=== PATIENT | male | born 1960 | race Caucasian/White ===

== ENCOUNTER 2017-10-28 14:59 | Emergency (ER) | payer OTHER ==
[~2017-10-28] VITALS: Ht 177.8 cm; Wt 86.2 kg
[2017-10-28 15:02] VITALS: Ht 177.8 cm; Wt 86.2 kg
[2017-10-28] MEDS ORDERED: ASPIRIN 81 MG TAB PO STA (16:22)
--- NOTE | 2017-10-28 16:31 | ERD ---
ER Documentation Chief Complaint Chief Complaint Pt presents with CP x 2 days and B leg pain, Pt had CAGB-4V 10/14/17 HPI Patient is a 57-year-old male who presents with sudden onset intermittent supraclavicular pain when he tries to sit up for the last 2 weeks. This began after he had surgery at [facility] for a four-vessel CABG. He also had vein harvest from right leg and coronary cath access in the left groin. He complains of pain in the left groin is worse with walking. He denies fever. He does report constant mild shortness of breath that is worse with ambulation. He has not yet had follow-up with his cardiothoracic surgeon. ROS All systems reviewed and are negative except as per history of present illness. Allergies Allergies: Coded Allergies: No Known Allergy (Unverified , 10/28/17) PMhx/Soc Past medical history: Coronary artery disease, diabetes mellitus, hypertension Past surgical history: CABG, 2 hernia repairs Social history: Remote history of cocaine and cannabis use, no current drug, alcohol or tobacco use. History of Surgery: Yes (CABGx4, right shoulder, bilateral inguinal hernia) Anesthesia Reaction: No Hx Neurological Disorder: No Hx Respiratory Disorders: No Hx Cardiac Disorders: Yes ([place]) Hx Psychiatric Problems: No Hx Miscellaneous Medical Probl: No Hx Alcohol Use: No Hx Substance Use: No Hx Tobacco Use: No Smoking Status: Never smoker FmHx Noncontributory Physical Exam Vitals Vital Signs Date Time Temp Pulse Resp B/P Pulse Ox O2 Delivery O2 Flow Rate FiO2 10/28/17 17:31 98.6 100 17 114/82 97 Room Air 10/28/17 16:07 98.6 105 17 123/78 97 Room Air 10/28/17 15:02 98.4 107 18 144/69 96 Physical Exam Const: Alert, no acute distress Head: Atraumatic Eyes: Normal Conjunctiva, No pallor, no icterus ENT: Normal External Ears, Nose and Mouth. Mucous membranes moist Neck: Full range of motion. No JVD Resp: Clear to auscultation bilaterally, No wheezes, no rales Cardio: Regular rate and rhythm, no murmurs, No gallop, no rub. Midline sternotomy incision clean, dry and intact. Abd: Soft, non tender, non distended. Skin: No petechiae or rashes Ext: No cyanosis, or edema, 2+ pulses in 4 extremities. Tenderness in the left medial thigh, no pulsatile mass. Neur: Awake and alert, Cranial nerves II through XII intact bilaterally, strength and sensation full for extremity's. Psych: Normal Mood and Affect Result Diagram: 10/28/17 1700 10/28/17 1700 Results 24 hrs Laboratory Tests Test 10/28/17 17:00 10/28/17 18:05 White Blood Count 10.110^3/ul Red Blood Count 3.1510^6/ul Hemoglobin 9.8g/dl Hematocrit 29.8% Mean Corpuscular Volume 94.6fl Mean Corpuscular Hemoglobin 31.1pg Mean Corpuscular Hemoglobin Concent 32.9g/dl Red Cell Distribution Width 13.0% Platelet Count 70646^3/UL Mean Platelet Volume 9.2fl Neutrophils % 66.5% Lymphocytes % 22.7% Monocytes % 7.2% Eosinophils % 2.5% Basophils % 0.4% Nucleated Red Blood Cells % 0.0/100WBC Neutrophils # 6.710^3/ul Lymphocytes # 2.310^3/ul Monocytes # 0.710^3/ul Eosinophils # 0.310^3/ul Basophils # 0.010^3/ul Nucleated Red Blood Cells # 0.010^3/ul Sodium Level 141mmol/L Potassium Level 4.2mmol/L Chloride Level 104mmol/L Carbon Dioxide Level 28mmol/L Anion Gap 13 Blood Urea Nitrogen 12mg/dl Creatinine 0.82mg/dl Glucose Level 92mg/dl Calcium Level 9.3mg/dl Troponin I 0.078ng/ml B-Type Natriuretic Peptide 1220PG/ML Prothrombin Time 14.2Sec Prothrombin Time Ratio 1.1 INR International Normalized Ratio 1.09 Current Medications Medications (Trade) Dose Ordered Sig/Nelly Route PRN Reason Start Time Stop Time Status Last Admin Dose Admin Aspirin (Aspirin) 162 mg ONCE STAT PO 10/28/17 16:22 10/28/17 16:25 DC 10/28/17 17:33 Procedures/MDM EKG read by me: Time 1507, rate 113 Rhythm: Sinus tachycardia [place]: Normal Intervals: Normal ST-T waves: Lateral T-wave inversion, inferior T-wave inversion, no ST elevation or depression Ectopy: No Q-waves: Inferior Q waves are not clearly pathologic Impression: Sinus tachycardia with T-wave inversions. MDM: Patient is a 57-year-old male who had a four-vessel CABG approximately 2 weeks ago and presents to the ER with complaint of dyspnea that is exacerbated by exertion, pain in his upper sternum, and pain in his left groin. With regards to the pain in his chest, he states that it is with movement such as leaning forward or sitting up. He denies that he has chest pain with exertion. It is focal in the region of the sternotomy, and is likely chest wall pain. However, the patient does report dyspnea at rest that is worse with exertion. He has an elevated BNP, and slightly elevated troponin. I advised that he be admitted to the hospital for echocardiogram to exclude underlying CHF or pericardial effusion, or complication of recent CABG. I also evaluated the patient's groin pain. There is no clinical sign of a post-cath aneurysm, and ultrasound is negative for DVT. I advised the patient that he may require an arterial ultrasound to evaluate further. He had equal pulses in 4 extremities. There is no sign of infection. The patient refused admission to the hospital and signed out AGAINST MEDICAL ADVICE. I discussed with him risks including surgery related complications, heart attack, heart failure, arrhythmia, aneurysm , infection or . The patient was able to express understanding of these risks and signed out AGAINST MEDICAL ADVICE. I did speak to the patient's cardiothoracic surgeon, Dr. Quinn at [facility]. He could not provide a specified follow-up appointments, but advised that the patient call his office on Tuesday to arrange a follow-up appointment. The patient was advised of the need to do so. Departure Diagnosis: Primary Impression: Chest pain Chest pain type: unspecified Qualified Code: R07.9 - Chest pain, unspecified type Additional Impressions: Groin pain Laterality: left Qualified Code: R10.32 - Left inguinal pain Dyspnea Dyspnea type: unspecified Qualified Code: R06.00 - Dyspnea, unspecified type Condition: Stable (AGAINST MEDICAL ADVICE) NIK SULLIVAN MD Oct 28, 2017 16:31
--- NOTE | 2017-10-28 16:44 | RADRPT ---
PROCEDURE: Chest x-ray CLINICAL INDICATION: Chest pain TECHNIQUE: Chest single view COMPARISON: None FINDINGS: There post sternotomy changes. Moderate cardiomegaly and mild atherosclerotic aortic calcification s een. The pulmonary vessels are normal in caliber. The lungs are clear. The costophrenic angles ar e sharp. The visualized bony thorax is unremarkable. IMPRESSION: Cardiomegaly and mild atherosclerotic aortic calcification Status post sternotomy RPTAT: HH .Jarrett Ballard MD, MD Date Time Electronically viewed and signed by .Jarrett Ballard MD, on 10/28/2017 16:44 .W/
--- NOTE | 2017-10-28 17:24 | RADRPT ---
PROCEDURE: US venous left lower extremity CLINICAL INDICATION: Left lower extremity swelling. TECHNIQUE: Multiple longitudinal and transverse images of the left lower extremity veins were obtai rosario with orourke scale and color Doppler imaging. The calf veins were interrogated as well. COMPARISON: None available. FINDINGS: Common femoral vein: Normal flow. Compressible and augmentable. Proximal superficial femoral vein: Normal flow. Compressible and augmentable. Mid superficial femoral vein: Normal flow. Compressible and augmentable. Distal superficial femoral vein: Normal flow. Compressible and augmentable. Popliteal vein: Normal flow. Compressible and augmentable. Calf veins: Normal flow. IMPRESSION: 1. No evidence of a deep vein thrombosis within the left lower extremity. RPTAT: HLBP .Shant Knowles MD, MD Date Time Electronically viewed and signed by .Shant Knowles MD, MD on 10/28/2017 17:23 .P/
[2017-10-28 17:25] LABS: BASOPHILS % 0.4 % (0.0-2.0); EOSINOPHILS # 0.3 10^3/ul (0.0-0.5); EOSINOPHILS % 2.5 % (0.0-7.0); HEMATOCRIT 29.8 % (42.0-52.0); HEMOGLOBIN 9.8 g/dl (14.0-18.0); LYMPHOCYTES # 2.3 10^3/ul (0.8-2.9); LYMPHOCYTES % 22.7 % (15.0-51.0); MEAN CORPUSCULAR HEMOGLOBIN 31.1 pg (29.0-33.0); MEAN CORPUSCULAR HGB CONC 32.9 g/dl (32.0-37.0); MEAN CORPUSCULAR VOLUME 94.6 fl (82.0-101.0); MEAN PLATELET VOLUME 9.2 fl (7.4-10.4); MONOCYTE # 0.7 10^3/ul (0.3-0.9); MONOCYTES % 7.2 % (0.0-11.0); NEUTROPHIL # 6.7 10^3/ul (1.6-7.5); NEUTROPHILS % 66.5 % (39.0-77.0); PLATELET COUNT 543 10^3/UL (140-415); RED BLOOD COUNT 3.15 10^6/ul (4.70-6.10); WHITE BLOOD COUNT 10.1 10^3/ul (4.8-10.8)
[2017-10-28 17:31] VITALS: BP 114/82; PULSE 100; RESP 17; TEMP 98.6
[2017-10-28 17:43] LABS: CALCIUM 9.3 mg/dl (8.4-10.2); CREATININE 0.82 mg/dl (0.61-1.24); POTASSIUM 4.2 mmol/L (3.5-5.1)
[2017-10-28 17:56] LABS: TROPONIN-I 0.078 ng/ml (0.00-0.12)
[2017-10-28 18:37] LABS: INR 1.09; PROTIME 14.2 Sec (11.9-14.9); PT RATIO 1.1
== END 2017-10-28 18:46 | disposition left against medical advice (07) ==
LOC: E/R 14:59
DX: R07.9 Chest pain, unspecified (principal); R10.32 Left lower quadrant pain; R06.00 Dyspnea, unspecified; I10 Essential (primary) hypertension; I25.10 Atherosclerotic heart disease of native coronary artery without angina pectoris; E11.9 Type 2 diabetes mellitus without complications; Z95.1 Presence of aortocoronary bypass graft
CPT/HCPCS: 36415; 71010; 80048; 83880; 84484; 85025; 85610; 93971; Z7502; Z7610; 93005

== ENCOUNTER 2017-10-29 21:59 | Inpatient (IN) | payer OTHER ==
[~2017-10-29] VITALS: Ht 180.3 cm; Wt 87.7 kg
--- NOTE | 2017-10-29 22:21 | ERD ---
ER Documentation Chief Complaint Chief Complaint left arm numbness/sob x 1 hour. also c/o chest pain HPI 57-year-old man status post CABG about 10 days ago presents with shortness of breath, he was seen and evaluated yesterday for similar symptoms. He lives in his car and does not ambulate much, he denies fevers or chills, no history of COPD or smoking, no complaints of chest pain. He has had no vomiting or diarrhea, no complaints of abdominal pain. Patient denies calf or leg swelling. Patient was seen and evaluated here yesterday and workup was unremarkable, bilateral lower extremity ultrasound was negative for DVT. ROS All systems reviewed and are negative except as per history of present illness. Allergies Allergies: Coded Allergies: No Known Allergy (Unverified , 10/30/17) PMhx/Soc CAD status post CABG with right lower extremity vein harvest, hypertension, hernia History of Surgery: Yes (CABGx4, right shoulder, bilateral inguinal hernia) Anesthesia Reaction: No Hx Neurological Disorder: No Hx Respiratory Disorders: No Hx Cardiac Disorders: Yes ([place]) Hx Psychiatric Problems: No Hx Miscellaneous Medical Probl: No Hx Alcohol Use: No Hx Substance Use: No Hx Tobacco Use: No FmHx Family History: No diabetes Physical Exam Vitals Vital Signs Date Time Temp Pulse Resp B/P Pulse Ox O2 Delivery O2 Flow Rate FiO2 10/30/17 02:27 98 20 117/78 98 Room Air 10/29/17 22:02 98.2 110 20 114/75 99 Physical Exam GENERAL: Well-developed, well-nourished, well-hydrated, in no apparent distress , looks nontoxic in appearance HEENT: Moist mucous membranes, pink conjunctiva, no cervical spine tenderness or step-off deformities, no goiter, no jaundice or icterus, extraocular movements intact without pain. No submandibular induration, and no pharyngeal erythema NEURO: Alert and oriented 3, cranial nerves II through XII intact bilaterally, pupils equal round reactive to light, no focal deficits or facial asymmetry, sensation intact distally Strength 5/5 in upper and lower extremities bilaterally CARDIAC: Tachycardic and regular, no murmurs rubs or gallops LUNGS: Clear bilaterally no wheezing crackles or stridor ABDOMEN: Soft nontender, no guarding, no rigidity, no rebound, no psoas sign no obturator sign. Normoactive bowel sounds SKIN: Warm and dry to touch, no abrasions, contusions, or hematomas, no lacerations, no ecchymosis, no target lesions, and without ulcers EXTREMITIES: No clubbing cyanosis or edema, calves are bilaterally symmetrical, no Homans sign, no popliteal cord sign. Distal pulses equal and bilateral PSYCH: Normal affect without agitation or irritability Result Diagram: 10/29/17223010/29/172230 Results 24 hrs Laboratory Tests Test 10/29/17 22:17 10/29/17 22:31 Blood Gas Specimen Source Blood arterial Arterial Blood Date Drawn 10/29/2017 10:30:33 PM Arterial Blood pH (Temp corrected) 7.430 Arterial Blood pCO2 (Temp correct) 38.4mmhg Arterial Blood pO2 (Temp corrected) 74.4mmHG Arterial Blood HCO3 24.9mmol/L Arterial Blood Base Excess 0.7mmol/L Arterial Blood Oxygen Saturation 94.5mmHG Richard Test ACCEPTAB Arterial Blood Gas Puncture Site Right Radial Arterial Blood Carboxyhemoglobin 0.3% Arterial Blood Methemoglobin 0.1% Blood Gas A-a O2 Differential 29.3mmHg Oxyhemoglobin Percent 94.1% Total Hemoglobin 11.2g/dl Blood Gas Temperature 37.0C Blood Gas Actual Respiration Rate 18 Blood Gas Modality ROOM AIR FiO2 21.0% Blood Gas Notified Whom Blood Gas Notified Time 10/29/2017 10:37:19 PM White Blood Count 12.310^3/ul Red Blood Count 3.4310^6/ul Hemoglobin 10.5g/dl Hematocrit 32.2% Mean Corpuscular Volume 93.9fl Mean Corpuscular Hemoglobin 30.6pg Mean Corpuscular Hemoglobin Concent 32.6g/dl Red Cell Distribution Width 13.0% Platelet Count 27907^3/UL Mean Platelet Volume 9.1fl Neutrophils % 69.4% Lymphocytes % 18.6% Monocytes % 7.7% Eosinophils % 2.9% Basophils % 0.6% Nucleated Red Blood Cells % 0.0/100WBC Neutrophils # 8.510^3/ul Lymphocytes # 2.310^3/ul Monocytes # 1.010^3/ul Eosinophils # 0.410^3/ul Basophils # 0.110^3/ul Nucleated Red Blood Cells # 0.010^3/ul Prothrombin Time 14.6Sec Prothrombin Time Ratio 1.1 INR International Normalized Ratio 1.12 Sodium Level 141mmol/L Potassium Level 3.6mmol/L Chloride Level 102mmol/L Carbon Dioxide Level 28mmol/L Anion Gap 15 Blood Urea Nitrogen 15mg/dl Creatinine 0.85mg/dl Glucose Level 109mg/dl Calcium Level 9.1mg/dl Total Bilirubin 0.3mg/dl Direct Bilirubin 0.00mg/dl Indirect Bilirubin 0.3mg/dl Aspartate Amino Transf (AST/SGOT) 25IU/L Alanine Aminotransferase (ALT/SGPT) 38IU/L Alkaline Phosphatase 105IU/L Troponin I 0.062ng/ml B-Type Natriuretic Peptide 1170PG/ML Total Protein 7.1g/dl Albumin 3.9g/dl Globulin 3.20g/dl Albumin/Globulin Ratio 1.21 Lipase 51U/L Current Medications Medications (Trade) Dose Ordered Sig/Nelly Route PRN Reason Start Time Stop Time Status Last Admin Dose Admin IV Flush 10 ml 10 ml STK-MED ONCE .ROUTE 10/30/17 00:44 10/30/17 00:45 DC 10/30/17 00:51 Sodium Chloride 100 ml @ ud STK-MED ONCE .ROUTE 10/30/17 00:44 10/30/17 00:45 DC 10/30/17 00:51 Iohexol (Omnipaque) 100 ml @ ud STK-MED ONCE .ROUTE 10/30/17 00:44 10/30/17 00:45 DC 10/30/17 00:51 Morphine Sulfate (morphine) 2 mg ONCE STAT IV 10/30/17 02:23 10/30/17 02:42 DC 10/30/17 03:17 Procedures/[facility] IV line was established patient was placed on pvc monitor rhythm strip revealed a sinus tachycardia at 110 bpm with upright P and T waves. Patient was afebrile EKG performed, read by me revealed a sinus tachycardia at 105 bpm normal axis, narrow QRS complex, no concerning ST elevations or depressions noted. CBC and electrolytes were unremarkable, liver function tests were normal, troponin was negative, ABG was normal. BNP was elevated for the second day in a row. One view chest x-ray performed, read by me revealed sternotomy wires, no acute infiltrates, no pneumothorax. Given the patient's continued tachycardia CT angiogram of the chest was ordered IMPRESSION: No evidence of pulmonary embolism or aortic dissection. Status post mediastinotomy and CABG with a qzbbzwgm-[id number] retrosternal fluid collection measuring 3.9 x 7.5 x 16.1 cm. Findings could represent a postoperative seroma, hematoma or abscess. Small to moderate pericardial effusion. Bilateral small pleural effusions with underlying atelectasis, greater on the left. Cholelithiasis. Coronary artery disease. Departure Diagnosis: Primary Impression: Shortness of breath Additional Impressions: Pericardial effusion Pleural effusion Condition: Fair DEVANTE ANTONIO MD Oct 29, 2017 22:21
[2017-10-29 22:37] LABS: AADO2 Arterial 29.3 mmHg (7.0-24.0); Allen Test ACCEPTAB; Arterial Base Excess 0.7 mmol/L (-3.0-3); Arterial COHb 0.3 % (0.0-3.0); Arterial Fraction of Oxyhgb 94.1 % (93.0-99.0); Arterial HCO3 24.9 mmol/L (22.0-26.0); Arterial MetHb 0.1 % (0.0-1.5); Arterial Total Hemglobin 11.2 g/dl (12.0-18.0); MODE ROOM AIR
[2017-10-29 23:02] LABS: BASOPHIL # 0.1 10^3/ul (0.0-0.1); BASOPHILS % 0.6 % (0.0-2.0); EOSINOPHILS # 0.4 10^3/ul (0.0-0.5); EOSINOPHILS % 2.9 % (0.0-7.0); HEMATOCRIT 32.2 % (42.0-52.0); HEMOGLOBIN 10.5 g/dl (14.0-18.0); LYMPHOCYTES # 2.3 10^3/ul (0.8-2.9); LYMPHOCYTES % 18.6 % (15.0-51.0); MEAN CORPUSCULAR HEMOGLOBIN 30.6 pg (29.0-33.0); MEAN CORPUSCULAR HGB CONC 32.6 g/dl (32.0-37.0); MEAN CORPUSCULAR VOLUME 93.9 fl (82.0-101.0); MEAN PLATELET VOLUME 9.1 fl (7.4-10.4); MONOCYTES % 7.7 % (0.0-11.0); NEUTROPHIL # 8.5 10^3/ul (1.6-7.5); NEUTROPHILS % 69.4 % (39.0-77.0); PLATELET COUNT 553 10^3/UL (140-415); RED BLOOD COUNT 3.43 10^6/ul (4.70-6.10); WHITE BLOOD COUNT 12.3 10^3/ul (4.8-10.8)
[2017-10-29 23:21] LABS: ALBUMIN 3.9 g/dl (3.3-4.9); ALBUMIN/GLOBULIN RATIO 1.21; BILIRUBIN,INDIRECT 0.3 mg/dl (0-1.1); BILIRUBIN,TOTAL 0.3 mg/dl (0.2-1.3); CALCIUM 9.1 mg/dl (8.4-10.2); CREATININE 0.85 mg/dl (0.61-1.24); POTASSIUM 3.6 mmol/L (3.5-5.1); TOTAL PROTEIN 7.1 g/dl (6.1-8.1)
[2017-10-29 23:28] LABS: INR 1.12; PROTIME 14.6 Sec (11.9-14.9); PT RATIO 1.1
[2017-10-29 23:32] LABS: TROPONIN-I 0.062 ng/ml (0.00-0.12)
[2017-10-30] VITALS (12 sets, daily range): BP systolic 106–139; BP diastolic 62–90; PULSE 90–105; RESP 16–20; TEMP 98.6; Ht 180.3 cm; Wt 87.7 kg
[2017-10-30] MEDS ORDERED: SOD CHLORIDE 0.9% 100 ML ONE (00:44)
[2017-10-30] MEDS ORDERED: IOHEXOL 100 ML ONE (00:44)
--- NOTE | 2017-10-30 01:33 | RADRPT ---
PROCEDURE: CHEST - 1 VIEW CLINICAL INDICATION: 57-year-old male with chest/abdominal pain. TECHNIQUE: A single frontal AP semi-erect view of the chest was performed. The images were review ed on a PACS workstation. COMPARISON: None. FINDINGS: The patient has had a prior median sternotomy. The cardiomediastinal silhouette is within normal finney its. The thoracic aortic arch is mildly calcified. There is a shallow inspiration. There is minimal bibasilar subsegmental atelectasis. There is no evidence for an infiltrate. There is no evidence fo r congestive heart failure. There is no evidence for pneumothorax. There are small metallic densitie s within the inferior right glenoid from prior shoulder surgery. There are old fracture deformities involving the posterior left fourth, fifth, sixth and seventh ribs. Bilateral carotid bifurcation re gion calcifications are noted. IMPRESSION: 1. Status post median sternotomy. 2. Calcified thoracic aortic arch. 3. Shallow inspiration with minimal bibasilar subsegmental atelectasis. 4. Prior right shoulder surgery. 5. Old posterior left rib fracture deformities. 6. Carotid bifurcation calcifications. .Radu Mckinney MD, Date Time Electronically viewed and signed by .Radu Mckinney MD, on 10/30/2017 01:32 .M/
[2017-10-30] MEDS ORDERED: morphine 2 MG INJ IV STA (02:23)
--- NOTE | 2017-10-30 03:09 | RADRPT ---
PROCEDURE: CT angiogram of the chest with contrast. CLINICAL INDICATION: Shortness of breath. TECHNIQUE: CT angiogram of the chest was obtained using a multi-detector high-resolution CT. Con tiguous axial images were obtained during the dynamic injection of 80 cc of Omnipaque 350 intravenou s contrast. Coronal and sagittal reformatted images were obtained. 3-D reformatted images were als o obtained. Images were reviewed on a PACS workstation. DICOM images are available. One or more of the following dose reduction techniques were used: - Automated exposure control. - Adjustment of the mA and/or kV according to patient size. - Use of iterative reconstruction technique. Exam CTD/vol = 17.90 mGy. Total exam DLP = 720.80 mGy-cm. COMPARISON: None. FINDINGS: The main pulmonary artery followed to the segmental divisions are well opacified. There is no filli ng defect or evidence of pulmonary embolism. The heart is normal in size with coronary artery calci fications. There is a small to moderate pericardial effusion. The aorta is of normal course and ca liber without evidence of aneurysm or dissection. The patient is status post mediastinotomy. There is a retrosternal fluid collection measuring 3.9 c m AP by 7.5 cm transverse by 16.1 cm sagittal. The visualized thyroid is unremarkable. There are no enlarged axillary lymph nodes. There are no enlarged mediastinal or hilar lymph nodes by CT criter ia. An azygos lobe is present. There are bilateral small pleural effusion with underlying atelectas is, greater on the left. There is bilateral mild peribronchial thickening. Limited evaluation of the upper abdomen demonstrates multiple gallstones. IMPRESSION: No evidence of pulmonary embolism or aortic dissection. Status post mediastinotomy and CABG with a uzfpsrkg-nq-ycstc retrosternal fluid collection measuring 3.9 x 7.5 x 16.1 cm. Findings could represent a postoperative seroma, hematoma or abscess. Small to moderate pericardial effusion. Bilateral small pleural effusions with underlying atelectasis, greater on the left. Cholelithiasis. Coronary artery disease. .Ryan York MD, Date Time Electronically viewed and signed by .Ryan York MD, on 10/30/2017 03:09 .T/
[2017-10-30] MEDS ORDERED: ONDANSETRON 4 MG INJ IV PRN (04:00)
[2017-10-30] MEDS ORDERED: morphine 2 MG INJ IV PRN (04:00)
[2017-10-30] MEDS ORDERED: NACL 0.9% 3 ML SYG IV SCH (04:00)
[2017-10-30] MEDS ORDERED: ACETAMINOPHEN 325 MG TAB PO PRN (04:00)
[2017-10-30] MEDS ORDERED: FUROSEMIDE 40 MG INJ IV ONE (04:30)
[2017-10-30] MEDS: HYDROCODONE/APAP (10/325) TAB PO PRN ×2 (06:10→14:43)
[2017-10-30 09:02] LABS: CHOL/HDL RATIO 2.7 RATIO; MAGNESIUM 1.1 mg/dl (1.7-2.5)
--- NOTE | 2017-10-30 09:07 | HP ---
Date/Time of Note Date/Time of Note DATE: 10/30/17 TIME: 08:51 Assessment/Plan VTE Prophylaxis VTE Prophylaxis Intervention: SCD's Lines/Catheters IV [facility]from [facility] Saline Lock Assessment/Plan Chief Complaint/Hosp Course This is a 57-year-old male being admitted to the telemetry floor for: #1 shortness of breath: This likely could be multifactorial secondary to underlying pericardial effusion, mild CHF exacerbation, and possible underlying bronchitis. At the current time he is afebrile. He does have a mildly elevated white blood cell count of 12,000. At the current time we will give him a dose of Lasix 40 mg IV. Will check an echocardiogram. Will monitor for any signs of any fevers. CTA of the chest did not show any PE, but it did state that there was a large pericardial effusion and pleural effusions. I do not think he needs any antibiotics at this time however will continue to monitor and initiate if indicated. Will attempt to contact his surgeon who performed his CABG to see if the CT surgeon can see him at our hospital. Will also may need to consult cardiology as well. BNP was 1170, first set of troponins was negative, will repeat troponin. #2 Retrosternal fluid collection: CT shows: Status post mediastinotomy and CABG with a [id number] retrosternal fluid collection measuring 3.9 x 7.5 x 16.1 cm. Findings could represent a postoperative seroma, hematoma or abscess. Current time patient is afebrile. He does have a mildly elevated white blood cell count. Will need to get in touch with the patient's CT surgeon regarding this. I did ask the ED physician if they could discuss with CT surgery whether this patient would be an appropriate admission at our hospital or would need to be transferred to the facility where he recently had surgery, however the ED physician stated that this could be dealt with as an outpatient and did not need to be discussed with CT surgery overnight. Nonetheless we will try to contact CT surgery today preferably his own CT surgeon to see if they may have privileges here otherwise patient likely will need to be transferred to his CT surgeon was facility. If we are not unable to get in touch with the patient CT surgeon, we will contact CT surgeon evaluate respiratory and and ask for their recommendation. #3 Elevated BNP: will check an echo, consult ct surgery and possibly cardio in the am. #4 hypertension: Continue to monitor and continue patient's home medications once they are verified. #5 diabetes mellitus, check hemoglobin A1c, insulin sliding scale #6 coronary artery disease: Continue patient's home medications once are verified, patient recently had an an SC status post CABG. #7 DVT GI prophylaxis: SCDs, no GI prophylaxis indicated Further treatment strategy will be implemented as per the clinical course We will need to verify patient's home medications so that we can reconcile them. Problems: HPI/ROS Admit Date/Time Admit Date/Time Oct 29, 2017 at 23:56 Hx of Present Illness Chief complaint: Shortness of breath This is a 57-year-old man status post CABG about 10 days ago presents with shortness of breath, he was seen and evaluated yesterday for similar symptoms. He lives in his car and does not ambulate much, he denies fevers but did report some chills chills, no history of COPD or smoking, no complaints of chest pain. He has had no vomiting or diarrhea, no complaints of abdominal pain. Patient denies calf or leg swelling. Patient was seen and evaluated here yesterday and workup was unremarkable, bilateral lower extremity ultrasound was negative for DVT. He does report that he has been coughing for approximately 5 days. He states that his has been also having similar symptoms. He also reports sputum which is clear. Denies any fevers. Though he does state he did notice some chills. Allergies: NKDA Medications: See JAN ROS Const: As per HPI Eyes : No pain discharge or redness or change in visual acuity ENT: No pain, sore throat, congestion, congestion, dysphagia or discharge Respiratory: As per HPI Cardiovascular: As her HPI GI : no change in appetite, abdominal pain, nausea, vomiting, diarrhea, constipation, or change in the color his stool Genitourinary: No dysuria, hematuria, flank pain , discharge or CVA tenderness Musculoskeletal: No joint pain, back pain, neck pain, restricted range of motion in neck or joints Skin: No rash, bruising or hives Neuro: No headache, dizziness, syncope, seizure, focal weakness Endocrine: No polyuria, polydipsia, temperature intolerance Psych: No hallucination, depression, anxiety or suicidal ideation PMH/Family/Social Past Medical History SC, hypertension, diabetes mellitus, CAD Past Surgical History Recent CABG approximately 10 days ago, right rotator cuff surgery, bilateral inguinal hernia repair Family History Significant Family History: heart disease, diabetes Social History Alcohol Use: none Smoking Status: Never smoker Drug Use: none Exam/Review of Systems Vital Signs Vitals Vital Signs Date Time Temp Pulse Resp B/P Pulse Ox O2 Delivery O2 Flow Rate FiO2 10/30/17 08:16 98 10/30/17 07:57 98.0 17 106/62 96 10/30/17 03:36 Room Air Exam Exam General: She is lying in bed in no acute distress, he is cracking jokes HEENT: Atraumatic, normocephalic. The pupils are equal, round and reactive. Extraocular motor are intact Neck: Supple with full range of motion. No rigidity or meningismus Chest: Tender to palpation across the anterior chest wall Lungs: Clear to auscultation bilaterally, no crackles no rales or wheezing, cough with clear sputum Heart: Normal S1-S2, Regular rhythm and rate. No overt murmur appreciated Abdomen: Soft , nontender, nondistended , bowel sounds are present. No guarding no rebound tenderness , No masses or organomegaly. No costovertebral temporal angle mass Extremities: Normal to inspection, no edema no cyanosis Neurologic: Normal mental status, speech normal, cranial nerves II through XII are intact, motor and sensory are intact, no focal weakness Additional Comments PROCEDURE: CT angiogram of the chest with contrast. CLINICAL INDICATION: Shortness of breath. TECHNIQUE: CT angiogram of the chest was obtained using a multi-detector high -resolution CT. Contiguous axial images were obtained during the dynamic injection of 80 cc of Omnipaque 350 intravenous contrast. Coronal and sagittal reformatted images were obtained. 3-D reformatted images were also obtained. Images were reviewed on a PACS workstation. DICOM images are available. One or more of the following dose reduction techniques were used: - Automated exposure control. - Adjustment of the mA and/or kV according to patient size. - Use of iterative reconstruction technique. Exam CTD/vol = 17.90 mGy. Total exam DLP = 720.80 mGy-cm. COMPARISON: None. FINDINGS: The main pulmonary artery followed to the segmental divisions are well opacified. There is no filling defect or evidence of pulmonary embolism. The heart is normal in size with coronary artery calcifications. There is a small to moderate pericardial effusion. The aorta is of normal course and caliber without evidence of aneurysm or dissection. The patient is status post mediastinotomy. There is a retrosternal fluid collection measuring 3.9 cm AP by 7.5 cm transverse by 16.1 cm sagittal. The visualized thyroid is unremarkable. There are no enlarged axillary lymph nodes. There are no enlarged mediastinal or hilar lymph nodes by CT criteria. An azygos lobe is present. There are bilateral small pleural effusion with underlying atelectasis, greater on the left. There is bilateral mild peribronchial thickening. Limited evaluation of the upper abdomen demonstrates multiple gallstones. IMPRESSION: No evidence of pulmonary embolism or aortic dissection. Status post mediastinotomy and CABG with a [id number] retrosternal fluid collection measuring 3.9 x 7.5 x 16.1 cm. Findings could represent a postoperative seroma, hematoma or abscess. Small to moderate pericardial effusion. Bilateral small pleural effusions with underlying atelectasis, greater on the left. Cholelithiasis. Coronary artery disease. .Ryan oYrk MD, Date Time Electronically viewed and signed by .Ryan York MD, MD on 10/30/2017 03:09 .T/ CC: DEVANTE ANTONIO MD PROCEDURE: CHEST - 1 VIEW CLINICAL INDICATION: 57-year-old male with chest/abdominal pain. TECHNIQUE: A single frontal AP semi-erect view of the chest was performed. The images were reviewed on a PACS workstation. COMPARISON: None. FINDINGS: The patient has had a prior median sternotomy. The cardiomediastinal silhouette is within normal limits. The thoracic aortic arch is mildly calcified. There is a shallow inspiration. There is minimal bibasilar subsegmental atelectasis. There is no evidence for an infiltrate. There is no evidence for congestive heart failure. There is no evidence for pneumothorax. There are small metallic densities within the inferior right glenoid from prior shoulder surgery. There are old fracture deformities involving the posterior left fourth, fifth, sixth and seventh ribs. Bilateral carotid bifurcation region calcifications are noted. IMPRESSION: 1. Status post median sternotomy. 2. Calcified thoracic aortic arch. 3. Shallow inspiration with minimal bibasilar subsegmental atelectasis. 4. Prior right shoulder surgery. 5. Old posterior left rib fracture deformities. 6. Carotid bifurcation calcifications. .Radu Mckinney MD, MD Date Time Electronically viewed and signed by .Radu Mckinney MD, MD on 10/30/2017 01:32 .M/ CC: DEVANTE ANTONIO MD EKG: sinus tachycardia at 105 bpm normal axis, narrow QRS complex, no concerning ST elevations or depressions noted. Above as per ED physician documentation Labs Result Diagram: 10/29/17223010/29/172230 Medications Medications Current Medications Ondansetron HCl (Zofran Inj) 4 mg Q6H PRN IV NAUSEA AND/OR VOMITING; Start 10/30/17 at 04:00 Acetaminophen (Tylenol Tab) 650 mg Q6H PRN PO PAIN LEVEL 1-3 OR FEVER; Start 10/30/17 at 04:00 Morphine Sulfate (morphine) 2 mg Q4H PRN IV PAIN LEVEL 7-10; Start 10/30/17 at 04:00 Acetaminophen/ Hydrocodone Bitart ([place] (10/325)) 1 tab Q6H PRN PO PAIN Last administered on 10/30/17t 06:10; Admin Dose 1 TAB; Start 10/30/17 at 05:00 MOOK LANDRY Oct 30, 2017 09:05
[2017-10-30 09:32] LABS: THYROID STIMULATING HORMONE 3.18 MIU/L (0.465-4.680)
[2017-10-30] MEDS ORDERED: CEPASTAT LOZENGE MT PRN (10:00)
[2017-10-30] MEDS ORDERED: PROMETHAZINE/CODEINE 5ML CUP PO PRN (10:00)
[2017-10-30 10:15] LABS: CK-MB 1.18 ng/ml (0.0-2.4); TROPONIN-I 0.053 ng/ml (0.00-0.12)
[2017-10-30] MEDS ORDERED: CARV6.2579 PO (12:09)
[2017-10-30] MEDS ORDERED: GLIP5TAB13 PO (12:09)
[2017-10-30] MEDS ORDERED: LISI2.5T59 PO (12:09)
[2017-10-30] MEDS ORDERED: CLOP75TA27 PO (12:09)
[2017-10-30] MEDS ORDERED: ASPI-664 PO (12:09)
[2017-10-30] MEDS ORDERED: HYDR-906 PO (12:09)
[2017-10-30] MEDS ORDERED: ATOR80TA75 PO (12:09)
--- NOTE | 2017-10-30 12:50 | RADRPT ---
Echocardiogram Report Patient Name: KANIKA CEE Gender: Male Date: 1960 Study Date: 30-Oct-2017 Bakery Decorator: BIENVENIDO Location: 5557 Ref. Physician: MOOK LANDRY Quality: Technically Difficult Study Procedures: Transthoracic echocardiogram with complete 2D, M-Mode, and doppler examination. Indications: S/P CABG. Shortness of breath. 2D/M Mode Doppler Measurement Value Normal Ranges Measurement Value Normal Ranges AoR Diam MM 3.6 cm SOFIA Vmax 3.3 cm2 LA/Ao MM 1.1 AV Mean Tenzin 0.8 m/sec LA Dimen MM 4.1 cm AV Mean PG 3.0 mmHg LVIDd 2D 4.8 3.5 - 5.6 cm AV Peak Tenzin 1.1 m/sec LVIDs 2D 3.7 2.1 - 4.1 cm AV Peak PG 5.0 mmHg FS 2D 22.4 % AV VTI 16.1 cm LVPWd 2D 1.4 0.6 - 1.1 cm LVOT Peak Tenzin 1.0 m/sec IVSd 2D 1.4 0.6 - 1.1 cm LVOT Peak PG 4.0 mmHg IVS/LVPW 2D 1.0 MV E Peak Tenzin 0.5 m/sec EF 2D 50.0 50.0 - 65.0 % MV A Peak Tenzin 0.7 m/sec LVOT Diam 2.1 cm MV E/A 0.8 LVOT Area 3.5 cm2 MV Decel Time 148 msec MV E/A 0.8 Findings Left Ventricle: Lower limits of normal systolic function. Normal left ventricular cavity size. Mild-Moderate concentric left ventricular hypertrophy. Paradoxical septal motion consistent with post pericardectomy status. Ejection fraction based on Cotton`s method is visually estimated at 50 %. Tissue Doppler/Mitral Doppler indices are consistent with impaired relaxation (Stage I diastolic dysfunction). Right Ventricle: Normal right ventricular size. Normal right ventricular systolic function. Left Atrium: There is mild enlargement of left atrium. Right Atrium: The right atrium is normal in size. Mitral Valve: Normal appearance and function of the mitral valve with trace physiologic regurgitation. Aortic Valve: Normal appearance of the aortic valve. No significant aortic stenosis or insufficiency. Tricuspid Valve: Normal appearance and function of the tricuspid valve with trace physiologic regurgitation. Unable to obtain RVSP due to minimal presence of tricuspid regurgitation. Pulmonic Valve: Normal pulmonic valve appearance. Pericardium: Small-Moderate pericardial effusion noted based on CTA with contrast done on 10/29/17. Small bilateral pleural effusion noted based on CTA with contrast done on 10/29/17. Aorta: Normal aortic root. IVC: Normal size and normal respiratory collapse visually consistent with normal right atrial pressure. Conclusions 1.Lower limits of normal systolic function. Normal left ventricular cavity size. Mild-Moderate concentric left ventricular hypertrophy. Paradoxical septal motion consistent with post pericardectomy status. Ejection fraction based on Cotton`s method is visually estimated at 50 %. Tissue Doppler/Mitral Doppler indices are consistent with impaired relaxation (Stage I diastolic dysfunction). 2.There is mild enlargement of left atrium. 3.Normal appearance and function of the mitral valve with trace physiologic regurgitation. 4.Normal appearance of the aortic valve. No significant aortic stenosis or insufficiency. 5.Normal appearance and function of the tricuspid valve with trace physiologic regurgitation. Unable to obtain RVSP due to minimal presence of tricuspid regurgitation. 6.Small-Moderate pericardial effusion noted mostly around LV. Small bilateral pleural effusion. 7.IVC has Normal size and normal respiratory collapse visually consistent with normal right atrial pressure. Electronically Signed By: Jovani Claudio 30-Oct-2017 12:50:52 -0800 Patient Name: KANIKA CEE Study Date: 30-Oct-2017 [id number]
[2017-10-30] MEDS ORDERED: MAGNESIUM SULFATE 4 GM/100 ML 100 ML IVPB ONE (14:00)
[2017-10-30] MEDS ORDERED: DOCUSATE SODIUM 100 MG CAP PO PRN (14:00)
--- NOTE | 2017-10-30 14:11 | PN ---
Date/Time of Note Date/Time of Note DATE: 10/30/17 TIME: 14:10 Assessment/Plan VTE Prophylaxis VTE Prophylaxis Intervention: SCD's Lines/Catheters IV Catheter Type (from Nrs): Saline Lock Assessment/Plan Assessment/Plan 57 yo M with CAD sp CABG 2 weeks ago at OSH here with SOB. CTA without evidence of PE but did show fluid retrosternal fluid collection, pleural effusions, and pericardial effusion without evidence of tamponade. No rbidget evidence of pulm infiltrate PLAN CT surgery to see in AM. per brief discussion with CT surgeon today, it is not uncommon to see retrosternal and pericardial fluid after CABG cont supportive care check RVP to eval for viral URI. No evidence of pneumonia CAD, HTN, HL: cont home BP, antiplatelet and lipid meds DM2: SSI, hold SFU Subjective 24 Hr Interval Summary Free Text/Dictation Pt sleeping when I went to see him this AM Exam/Review of Systems Vital Signs Vitals Vital Signs Date Time Temp Pulse Resp B/P Pulse Ox O2 Delivery O2 Flow Rate FiO2 10/30/17 12:28 101 10/30/17 12:18 98.2 17 139/83 95 10/30/17 03:36 Room Air Exam nad no mrg abd soft no rashes no edema TTE reviewed, +mild/mod pericardial effusion dw preparer samples and repairs who read the study, no evidence of tamponade physiology Results Result Diagram: 10/29/17223010/29/171 Results 24 hrs Laboratory Tests Test 10/29/17 22:17 10/29/17 22:31 10/30/17 08:25 10/30/17 08:26 Blood Gas Specimen Source Blood arterial Arterial Blood Date Drawn 10/29/2017 10:30:33 PM Arterial Blood pH (Temp corrected) 7.430 Arterial Blood pCO2 (Temp correct) 38.4 Arterial Blood pO2 (Temp corrected) 74.4 L Arterial Blood HCO3 24.9 Arterial Blood Base Excess 0.7 Arterial Blood Oxygen Saturation 94.5 L Richard Test ACCEPTAB Arterial Blood Gas Puncture Site Right Radial Arterial Blood Carboxyhemoglobin 0.3 Arterial Blood Methemoglobin 0.1 Blood Gas A-a O2 Differential 29.3 H Oxyhemoglobin Percent 94.1 Total Hemoglobin 11.2 L Blood Gas Temperature 37.0 Blood Gas Actual Respiration Rate 18 Blood Gas Modality ROOM AIR FiO2 21.0 Blood Gas Notified Whom Blood Gas Notified Time 10/29/2017 10:37:19 PM White Blood Count 12.3 #H Red Blood Count 3.43 L Hemoglobin 10.5 L Hematocrit 32.2 L Mean Corpuscular Volume 93.9 Mean Corpuscular Hemoglobin 30.6 Mean Corpuscular Hemoglobin Concent 32.6 Red Cell Distribution Width 13.0 Platelet Count 553 H Mean Platelet Volume 9.1 Neutrophils % 69.4 Lymphocytes % 18.6 Monocytes % 7.7 Eosinophils % 2.9 Basophils % 0.6 Nucleated Red Blood Cells % 0.0 Neutrophils # 8.5 H Lymphocytes # 2.3 Monocytes # 1.0 H Eosinophils # 0.4 Basophils # 0.1 Nucleated Red Blood Cells # 0.0 Prothrombin Time 14.6 Prothrombin Time Ratio 1.1 INR International Normalized Ratio 1.12 Sodium Level 141 Potassium Level 3.6 Chloride Level 102 Carbon Dioxide Level 28 Anion Gap 15 Blood Urea Nitrogen 15 Creatinine 0.85 Glucose Level 109 Calcium Level 9.1 Total Bilirubin 0.3 Direct Bilirubin 0.00 Indirect Bilirubin 0.3 Aspartate Amino Transf (AST/SGOT) 25 Alanine Aminotransferase (ALT/SGPT) 38 Alkaline Phosphatase 105 Troponin I 0.062 0.053 B-Type Natriuretic Peptide 1170 H Total Protein 7.1 Albumin 3.9 Globulin 3.20 Albumin/Globulin Ratio 1.21 Lipase 51 Magnesium Level 1.1 L Triglycerides Level 125 Cholesterol Level 87 L LDL Cholesterol, Calculated 30 HDL Cholesterol 32 Cholesterol/HDL Ratio 2.7 Thyroid Stimulating Hormone (TSH) 3.180 Hemoglobin A1c 7.4 H Creatine Kinase 76 Creatine Kinase Index 1.6 Creatinine Kinase MB (Mass) 1.18 Medications Medications Current Medications Ondansetron HCl (Zofran Inj) 4 mg Q6H PRN IV NAUSEA AND/OR VOMITING; Start 10/30/17 at 04:00 Acetaminophen (Tylenol Tab) 650 mg Q6H PRN PO PAIN LEVEL 1-3 OR FEVER; Start 10/30/17 at 04:00 Morphine Sulfate (morphine) 2 mg Q4H PRN IV PAIN LEVEL 7-10; Start 10/30/17 at 04:00 Acetaminophen/ Hydrocodone Bitart ([place] (10/325)) 1 tab Q6H PRN PO PAIN Last administered on 10/30/17t 06:10; Admin Dose 1 TAB; Start 10/30/17 at 05:00 Promethazine HCl/ Codeine (Phenergan/ Codeine) 10 ml Q4H PRN PO COUGH Last administered on 10/30/17t 10:36; Admin Dose 10 ML; Start 10/30/17 at 10:00 Phenol 1 lozenge 1 lozenge Q1H PRN MT COUGH; Start 10/30/17 at 10:00 Magnesium Sulfate (Magnesium Sulfate 4 Gm/100 ml) 100 ml @ 25 mls/hr ONCE ONCE IVPB ; Start 10/30/17 at 14:00; Stop 10/30/17 at 17:59 Docusate Sodium (Colace) 100 mg DAILY PRN PO CONSTIPATION; Start 10/30/17 at 14 :00 LINDA RIVERA MD Oct 30, 2017 14:11
[2017-10-30] MEDS ORDERED: ALBUTEROL/IPRATROPIUM (NEB) 3 ML AMP HHN PRN (15:00)
[2017-10-30] MEDS ORDERED: DEXTROSE 50% 50 ML SYRINGE IV PRN ×2 (16:00)
[2017-10-30] MEDS ORDERED: GLUCOSE GEL 15 GRAM TUBE BUCCAL PRN (16:00)
[2017-10-30] MEDS ORDERED: GLUCOSE GEL 15 GRAM TUBE PO PRN ×2 (16:00)
[2017-10-30] MEDS ORDERED: GLUCAGON 1 MG INJ IM PRN (16:00)
[2017-10-30 16:27] LABS: TROPONIN-I 0.045 ng/ml (0.00-0.12)
[2017-10-30 16:34] LABS: CK-MB 0.59 ng/ml (0.0-2.4)
[2017-10-30] MEDS: INSULIN ASPART [NOVOLOG] 3 ML PEN SC SCH ×2 (17:20→21:00)
[2017-10-30] MEDS: ALBUTEROL/IPRATROPIUM (NEB) 3 ML AMP HHN SCH (19:24)
[2017-10-30] MEDS: ATORVASTATIN 80 MG TAB PO SCH (21:28)
[2017-10-31] VITALS (11 sets, daily range): BP systolic 95–120; BP diastolic 63–78; PULSE 91–106; RESP 18–20
[2017-10-31] MEDS: HYDROCODONE/APAP (10/325) TAB PO PRN ×4 (01:08→23:52)
[2017-10-31] MEDS: ALBUTEROL/IPRATROPIUM (NEB) 3 ML AMP HHN SCH ×4 (01:28→19:22)
[2017-10-31] MEDS: ACCU-CHEK XX SCH (02:00)
[2017-10-31] MEDS: INSULIN ASPART [NOVOLOG] 3 ML PEN SC SCH ×4 (08:00→20:44)
[2017-10-31] MEDS: ASPIRIN (EC) 81 MG TAB PO SCH (08:42)
[2017-10-31] MEDS: CLOPIDOGREL 75 MG TAB PO SCH (08:42)
[2017-10-31] MEDS: LISINOPRIL 5 MG TAB PO SCH (08:43)
[2017-10-31 14:46] LABS: BASOPHILS % 0.4 % (0.0-2.0); EOSINOPHILS # 0.2 10^3/ul (0.0-0.5); EOSINOPHILS % 2.5 % (0.0-7.0); HEMATOCRIT 31.5 % (42.0-52.0); HEMOGLOBIN 10.3 g/dl (14.0-18.0); LYMPHOCYTES # 1.4 10^3/ul (0.8-2.9); LYMPHOCYTES % 15.2 % (15.0-51.0); MEAN CORPUSCULAR HEMOGLOBIN 30.7 pg (29.0-33.0); MEAN CORPUSCULAR HGB CONC 32.7 g/dl (32.0-37.0); MEAN PLATELET VOLUME 9.1 fl (7.4-10.4); MONOCYTE # 0.9 10^3/ul (0.3-0.9); MONOCYTES % 9.5 % (0.0-11.0); NEUTROPHIL # 6.6 10^3/ul (1.6-7.5); NEUTROPHILS % 72.1 % (39.0-77.0); PLATELET COUNT 495 10^3/UL (140-415); RED BLOOD COUNT 3.35 10^6/ul (4.70-6.10); RED CELL DISTRIBUTION WIDTH 12.9 % (11.5-14.5); WHITE BLOOD COUNT 9.1 10^3/ul (4.8-10.8)
[2017-10-31 15:13] LABS: ALBUMIN 3.6 g/dl (3.3-4.9); ALBUMIN/GLOBULIN RATIO 1.16; BILIRUBIN,INDIRECT 0.1 mg/dl (0-1.1); BILIRUBIN,TOTAL 0.1 mg/dl (0.2-1.3); CALCIUM 9.1 mg/dl (8.4-10.2); CREATININE 0.82 mg/dl (0.61-1.24); POTASSIUM 4.1 mmol/L (3.5-5.1); TOTAL PROTEIN 6.7 g/dl (6.1-8.1)
--- NOTE | 2017-10-31 16:44 | PN ---
Date/Time of Note Date/Time of Note DATE: 10/31/17 TIME: 16:39 Assessment/Plan VTE Prophylaxis VTE Prophylaxis Intervention: SCD's Lines/Catheters IV [facility] Saline Lock Urinary Cath still in place: No Assessment/Plan Chief Complaint/Hosp Course S: Patient presently denies chest pain. Awaiting to be seen by cardiothoracic surgeon. O: VS (see below) PE: General: Sitting in chair, at bedside, no acute distress. HEENT: Atraumatic, normocephalic. The pupils are equal, round and reactive. Extraocular motor are intact Neck: Supple with full range of motion. No rigidity or meningismus Chest: Tender to palpation across the anterior chest wall Lungs: Clear to auscultation bilaterally, no crackles no rales or wheezing, cough with clear sputum Heart: Normal S1-S2, Regular rhythm and rate. No overt murmur appreciated Abdomen: Soft , nontender, nondistended , bowel sounds are present. No guarding no rebound tenderness , No masses or organomegaly. No costovertebral temporal angle mass Extremities: Normal to inspection, no edema no cyanosis Neurologic: Normal mental status, speech normal, cranial nerves II through XII are intact, motor and sensory are intact, no focal weakness A/P: 57 yo M with CAD sp CABG 2 weeks ago at OSH here with SOB. CTA without evidence of PE but did show fluid retrosternal fluid collection, pleural effusions, and pericardial effusion without evidence of tamponade. No bridget evidence of pulm infiltrate #1 shortness of breath: This likely could be multifactorial secondary to underlying pericardial effusion, mild CHF exacerbation, and recent coronary artery bypass grafting 17-18 days ago at outside hospital. CTA shows: Status post mediastinotomy and CABG with a [id number] retrosternal fluid collection measuring 3.9 x 7.5 x 16.1 cm. Findings could represent a postoperative seroma, hematoma or abscess. Current time patient is afebrile. He does have a mildly elevated white blood cell count. -Follow-up CTS recommendations, per brief discussion with CT surgeon yesterday, it is not uncommon to see retrosternal and pericardial fluid after CABG - cont supportive care 2. Elevated BNP: Follow-up echo 3. hypertension: Continue to monitor and continue patient's home medications once they are verified. 4. diabetes mellitus, check hemoglobin A1c, insulin sliding scale 5. coronary artery disease: Continue patient's home medications, patient recently had an an [place] status post CABG. #7 DVT GI prophylaxis: SCDs Further treatment strategy will be implemented as per the clinical course Problems: Exam/Review of Systems Vital Signs Vitals Vital Signs Date Time Temp Pulse Resp B/P Pulse Ox O2 Delivery O2 Flow Rate FiO2 10/31/17 15:52 98.3 99 19 100/63 94 10/31/17 14:10 Nasal Cannula 2.0 28 Intake and Output 10/30/17 10/30/17 10/31/17 15:00 23:00 07:00 Intake Total 500 ml 350 ml Balance 500 ml 350 ml Results Result Diagram: 10/31/17 1417 10/31/17 1418 Results 24 hrs Laboratory Tests Test 10/30/17 17:20 10/30/17 21:26 10/31/17 08:40 10/31/17 12:01 Bedside Glucose 174 119 114 261 H Test 10/31/17 14:17 10/31/17 14:18 White Blood Count 9.1 # Red Blood Count 3.35 L Hemoglobin 10.3 L Hematocrit 31.5 L Mean Corpuscular Volume 94.0 Mean Corpuscular Hemoglobin 30.7 Mean Corpuscular Hemoglobin Concent 32.7 Red Cell Distribution Width 12.9 Platelet Count 495 H Mean Platelet Volume 9.1 Neutrophils % 72.1 Lymphocytes % 15.2 Monocytes % 9.5 Eosinophils % 2.5 Basophils % 0.4 Nucleated Red Blood Cells % 0.0 Neutrophils # 6.6 Lymphocytes # 1.4 Monocytes # 0.9 Eosinophils # 0.2 Basophils # 0.0 Nucleated Red Blood Cells # 0.0 Sodium Level 139 Potassium Level 4.1 Chloride Level 100 Carbon Dioxide Level 29 Anion Gap 14 Blood Urea Nitrogen 16 Creatinine 0.82 Glucose Level 208 Calcium Level 9.1 Total Bilirubin 0.1 L Direct Bilirubin 0.00 Indirect Bilirubin 0.1 Aspartate Amino Transf (AST/SGOT) 25 Alanine Aminotransferase (ALT/SGPT) 36 Alkaline Phosphatase 113 Total Protein 6.7 Albumin 3.6 Globulin 3.10 Albumin/Globulin Ratio 1.16 Medications Medications Current Medications Ondansetron HCl (Zofran Inj) 4 mg Q6H PRN IV NAUSEA AND/OR VOMITING; Start 10/30/17 at 04:00 Acetaminophen (Tylenol Tab) 650 mg Q6H PRN PO PAIN LEVEL 1-3 OR FEVER; Start 10/30/17 at 04:00 Morphine Sulfate (morphine) 2 mg Q4H PRN IV PAIN LEVEL 7-10; Start 10/30/17 at 04:00 Acetaminophen/ Hydrocodone Bitart ([place] (10/325)) 1 tab Q6H PRN PO PAIN Last administered on 10/31/17 16:16; Admin Dose 1 TAB; Start 10/30/17 at 05:00 Promethazine HCl/ Codeine (Phenergan/ Codeine) 10 ml Q4H PRN PO COUGH Last administered on 10/30/17 10:36; Admin Dose 10 ML; Start 10/30/17 at 10:00 Phenol (Cepastat Lozenge) 1 lozenge Q1H PRN MT COUGH Last administered on 15:59; Admin Dose 1 LOZENGE; Start 10/30/17 at 10:00 Docusate Sodium (Colace) 100 mg DAILY PRN PO CONSTIPATION; Start 10/30/17 at 14 :00 Aspirin (Halfprin) 81 mg DAILY PO Last administered on 10/31/17 08:42; Admin Dose 81 MG; Start 10/31/17 at 09:00 Atorvastatin Calcium (Lipitor) 80 mg QHS PO Last administered on 10/30/17 21: 28; Admin Dose 80 MG; Start 10/30/17 at 21:00 Carvedilol (Coreg) 6.25 mg BID PO Last administered on 10/31/17 08:44; Admin Dose 6.25 MG; Start 10/30/17 at 21:00 Clopidogrel Bisulfate (plaVIX) 75 mg DAILY PO Last administered on 10/31/17 08 :42; Admin Dose 75 MG; Start 10/31/17 at 09:00 Lisinopril (Zestril) 2.5 mg DAILY PO Last administered on 10/31/17 08:43; Admin Dose 2.5 MG; Start 10/31/17 at 09:00 Diagnostic Test (Pha) (Accu-Chek) 1 ea 02 XX ; Start 10/31/17 at 02:00 Miscellaneous Information 1 ea NOTE XX ; Start 10/30/17 at 16:00 Glucose (Glutose) 15 gm Q15M PRN PO DECREASED GLUCOSE; Start 10/30/17 at 16:00 Glucose (Glutose) 22.5 gm Q15M PRN PO DECREASED GLUCOSE; Start 10/30/17 at 16: 00 Dextrose (D50w Syringe) 25 ml Q15M PRN IV DECREASED GLUCOSE; Start 10/30/17 at 16:00 Dextrose (D50w Syringe) 50 ml Q15M PRN IV DECREASED GLUCOSE; Start 10/30/17 at 16:00 Glucagon (Glucagen) 1 mg Q15M PRN IM DECREASED GLUCOSE; Start 10/30/17 at 16:00 Glucose (Glutose) 15 gm Q15M PRN BUCCAL DECREASED GLUCOSE; Start 10/30/17 at 16 :00 JESSE RODRIGUEZ Oct 31, 2017 16:44
[2017-10-31] MEDS: ATORVASTATIN 80 MG TAB PO SCH (20:39)
[2017-11-01] VITALS (10 sets, daily range): BP systolic 107–138; BP diastolic 60–82; PULSE 80–103; RESP 17–19
[2017-11-01] MEDS: ALBUTEROL/IPRATROPIUM (NEB) 3 ML AMP HHN SCH ×3 (01:50→14:00)
[2017-11-01] MEDS: ACCU-CHEK XX SCH (02:00)
[2017-11-01] MEDS: HYDROCODONE/APAP (10/325) TAB PO PRN ×3 (03:56→14:15)
[2017-11-01] MEDS: LISINOPRIL 5 MG TAB PO SCH (08:18)
[2017-11-01] MEDS: ASPIRIN (EC) 81 MG TAB PO SCH (08:18)
[2017-11-01] MEDS: CLOPIDOGREL 75 MG TAB PO SCH (08:18)
[2017-11-01] MEDS: INSULIN ASPART [NOVOLOG] 3 ML PEN SC SCH ×3 (08:18→16:23)
--- NOTE | 2017-11-01 11:55 | PN ---
Date/Time of Note Date/Time of Note DATE: 11/01/17 TIME: 11:53 Assessment/Plan VTE Prophylaxis VTE Prophylaxis Intervention: SCD's Lines/Catheters IV [facility] Saline Lock Urinary Cath still in place: No Assessment/Plan Chief Complaint/Hosp Course S: Patient had some mild chest pain, otherwise no acute events overnight. Still waiting to be seen by cardiothoracic surgeon. O: VS (see below) PE: General: Sitting in chair, at bedside, no acute distress. HEENT: Atraumatic, normocephalic. The pupils are equal, round and reactive. Extraocular motor are intact Neck: Supple with full range of motion. No rigidity or meningismus Chest: Tender to palpation across the anterior chest wall Lungs: Clear to auscultation bilaterally, no crackles no rales or wheezing, cough with clear sputum Heart: Normal S1-S2, Regular rhythm and rate. No overt murmur appreciated Abdomen: Soft , nontender, nondistended , bowel sounds are present. No guarding no rebound tenderness , No masses or organomegaly. No costovertebral temporal angle mass Extremities: Normal to inspection, no edema no cyanosis Neurologic: Normal mental status, speech normal, cranial nerves II through XII are intact, motor and sensory are intact, no focal weakness A/P: 57 yo M with CAD sp CABG 2 weeks ago at OSH here with SOB. CTA without evidence of PE but did show fluid retrosternal fluid collection, pleural effusions, and pericardial effusion without evidence of tamponade. No bridget evidence of pulm infiltrate #1 shortness of breath: This likely could be multifactorial secondary to underlying pericardial effusion, mild CHF exacerbation, and recent coronary artery bypass grafting 18 days ago at outside hospital. CTA shows: Status post mediastinotomy and CABG with a [id number] retrosternal fluid collection measuring 3.9 x 7.5 x 16.1 cm. Findings could represent a postoperative seroma, hematoma or abscess. Current time patient is afebrile. He did present with a mildly elevated white blood cell count, normalizing now. -Follow-up CTS recommendations - cont supportive care 2. Elevated BNP: Follow-up echo 3. hypertension: Continue to monitor and continue patient's home medications once they are verified. 4. diabetes mellitus - f/u hemoglobin A1c, insulin sliding scale 5. coronary artery disease: Continue patient's home medications, patient recently had an an [place] status post CABG. #7 DVT GI prophylaxis: SCDs Further treatment strategy will be implemented as per the clinical course Problems: Exam/Review of Systems Vital Signs Vitals Vital Signs Date Time Temp Pulse Resp B/P Pulse Ox O2 Delivery O2 Flow Rate FiO2 11/01/17 11:39 97.3 88 18 107/72 95 10/31/17 19:23 Nasal Cannula 2.0 10/31/17 14:10 28 Results Result Diagram: 10/31/17 1417 10/31/17 1418 Results 24 hrs Laboratory Tests Test 10/31/17 12:01 10/31/17 14:17 10/31/17 14:18 10/31/17 17:23 Bedside Glucose 261 H 190 White Blood Count 9.1 # Red Blood Count 3.35 L Hemoglobin 10.3 L Hematocrit 31.5 L Mean Corpuscular Volume 94.0 Mean Corpuscular Hemoglobin 30.7 Mean Corpuscular Hemoglobin Concent 32.7 Red Cell Distribution Width 12.9 Platelet Count 495 H Mean Platelet Volume 9.1 Neutrophils % 72.1 Lymphocytes % 15.2 Monocytes % 9.5 Eosinophils % 2.5 Basophils % 0.4 Nucleated Red Blood Cells % 0.0 Neutrophils # 6.6 Lymphocytes # 1.4 Monocytes # 0.9 Eosinophils # 0.2 Basophils # 0.0 Nucleated Red Blood Cells # 0.0 Sodium Level 139 Potassium Level 4.1 Chloride Level 100 Carbon Dioxide Level 29 Anion Gap 14 Blood Urea Nitrogen 16 Creatinine 0.82 Glucose Level 208 Calcium Level 9.1 Total Bilirubin 0.1 L Direct Bilirubin 0.00 Indirect Bilirubin 0.1 Aspartate Amino Transf (AST/SGOT) 25 Alanine Aminotransferase (ALT/SGPT) 36 Alkaline Phosphatase 113 Total Protein 6.7 Albumin 3.6 Globulin 3.10 Albumin/Globulin Ratio 1.16 Test 10/31/17 20:40 11/01/17 08:05 Bedside Glucose 193 149 Medications Medications Current Medications Ondansetron HCl (Zofran Inj) 4 mg Q6H PRN IV NAUSEA AND/OR VOMITING; Start 10/30/17 at 04:00 Acetaminophen (Tylenol Tab) 650 mg Q6H PRN PO PAIN LEVEL 1-3 OR FEVER; Start 10/30/17 at 04:00 Morphine Sulfate (morphine) 2 mg Q4H PRN IV PAIN LEVEL 7-10 Last administered on 10/31/17 20:46; Admin Dose 2 MG; Start 10/30/17 at 04:00 Acetaminophen/ Hydrocodone Bitart ([place] (10325)) 1 tab Q6H PRN PO PAIN Last administered on 10/31/17 23:52; Admin Dose 1 TAB; Start 10/30/17 at 05:00 Promethazine HCl/ Codeine (Phenergan/ Codeine) 10 ml Q4H PRN PO COUGH Last administered on 10/30/17 10:36; Admin Dose 10 ML; Start 10/30/17 at 10:00 Phenol (Cepastat Lozenge) 1 lozenge Q1H PRN MT COUGH Last administered on 15:59; Admin Dose 1 LOZENGE; Start 10/30/17 at 10:00 Docusate Sodium (Colace) 100 mg DAILY PRN PO CONSTIPATION; Start 10/30/17 at 14 :00 Aspirin (Halfprin) 81 mg DAILY PO Last administered on 11/01/17 08:18; Admin Dose 81 MG; Start 10/31/17 at 09:00 Atorvastatin Calcium (Lipitor) 80 mg QHS PO Last administered on 10/31/17 20: 39; Admin Dose 80 MG; Start 10/30/17 at 21:00 Carvedilol (Coreg) 6.25 mg BID PO Last administered on 11/01/17 08:18; Admin Dose 6.25 MG; Start 10/30/17 at 21:00 Clopidogrel Bisulfate (plaVIX) 75 mg DAILY PO Last administered on 11/01/17 08 :18; Admin Dose 75 MG; Start 10/31/17 at 09:00 Lisinopril (Zestril) 2.5 mg DAILY PO Last administered on 11/01/17 08:18; Admin Dose 2.5 MG; Start 10/31/17 at 09:00 Diagnostic Test (Pha) (Accu-Chek) 1 ea 02 XX ; Start 10/31/17 at 02:00 Miscellaneous Information 1 ea NOTE XX ; Start 10/30/17 at 16:00 Glucose (Glutose) 15 gm Q15M PRN PO DECREASED GLUCOSE; Start 10/30/17 at 16:00 Glucose (Glutose) 22.5 gm Q15M PRN PO DECREASED GLUCOSE; Start 10/30/17 at 16: 00 Dextrose (D50w Syringe) 25 ml Q15M PRN IV DECREASED GLUCOSE; Start 10/30/17 at 16:00 Dextrose (D50w Syringe) 50 ml Q15M PRN IV DECREASED GLUCOSE; Start 10/30/17 at 16:00 Glucagon (Glucagen) 1 mg Q15M PRN IM DECREASED GLUCOSE; Start 10/30/17 at 16:00 Glucose (Glutose) 15 gm Q15M PRN BUCCAL DECREASED GLUCOSE; Start 10/30/17 at 16 :00 JESSE RODRIGUEZ Nov 01, 2017 11:55
--- NOTE | 2017-11-01 14:35 | PDOCDIS ---
Discharge Instructions CONDITION Patient Condition: Stable HOME CARE INSTRUCTIONS: Diet Instructions: Low Fat /Cholesterol FOLLOW UP/APPOINTMENTS Follow-up Plan Please take your medications as prescribed. Please follow-up with your laboratory sampler and regular doctor in the clinic in the next few days. JESSE RODRIGUEZ Nov 01, 2017 14:34
[2017-11-01] MEDS ORDERED: BENZ1LOZ4 MT (14:37)
[2017-11-01] MEDS ORDERED: CARV6.2579 PO (14:37)
[2017-11-01] MEDS ORDERED: LISI2.5T59 PO (14:37)
[2017-11-01] MEDS ORDERED: ASPI-664 PO (14:37)
[2017-11-01] MEDS ORDERED: ATOR80TA75 PO (14:37)
[2017-11-01] MEDS ORDERED: GLIP5TAB13 PO (14:37)
[2017-11-01] MEDS ORDERED: CLOP75TA27 PO (14:37)
--- NOTE | 2017-11-01 14:44 | DS ---
Date/Time of Note Date/Time of Note DATE: 11/01/17 TIME: 14:39 Discharge Summary Admission/Discharge Info Admit Date/Time Oct 29, 2017 at 23:56 Discharge Date/Time Discharge Diagnosis 1. shortness of breath: This likely could be multifactorial secondary to underlying pericardial effusion, mild CHF exacerbation, and recent coronary artery bypass grafting 18 days ago at outside hospital. CTA shows: Status post mediastinotomy and CABG with a [id number] retrosternal fluid collection measuring 3.9 x 7.5 x 16.1 cm 2. Elevated BNP: sec to # 1 3. hypertension 4. diabetes mellitus 5. coronary artery disease- recent [place] status post CABG. 6. Chest pain: Ruled out for acute coronary syndrome this admission Patient Condition: Stable Hospital Course 57-year-old man status post CABG about 15 days prior to admission at outside hospital, presented with shortness of breath He lives in his car and does not ambulate much, he denies fevers but did report some chills chills, no history of COPD or smoking, no complaints of chest pain. He has had no vomiting or diarrhea, no complaints of abdominal pain. Patient denies calf or leg swelling. Patient was seen and evaluated here yesterday and workup was unremarkable, bilateral lower extremity ultrasound was negative for DVT. He does report that he has been coughing for approximately 5 days. He states that his has been also having similar symptoms. He also reports sputum which is clear. Denies any fevers. Though he does state he did notice some chills. He was admitted and had CTA that showed: Status post mediastinotomy and CABG with a [id number]-[id number] retrosternal fluid collection measuring 3.9 x 7.5 x 16.1 cm. patient was admitted ruled out for acute coronary syndrome. His chest pain symptoms slowly improved, although he still had some pain likely secondary to the surgery he had sternotomy. He was able to ambulate, tolerated p.o. diet. He was awaiting cardiothoracic surgery evaluation today, if he is cleared by then he will be discharged home today improved condition. He has a follow-up appointment with his boiler or engine operator at [facility] in the next few days, he is encouraged to keep that appointment as well as follow-up with his primary care doctor. See below for full list of discharge medications. Home Meds Active Scripts Benzocaine/Menthol (SORE THROAT LOZENGE) 1 Each Lozenge, 1 LOZENGE MT Q1H Y for COUGH, #90 LOZENGE Prov:JESSE RODRIGUEZ. 11/01/17 Lisinopril* (Lisinopril*) 2.5 Mg Tablet, 2.5 MG PO DAILY, #30 TAB 4 Refills Prov:JESSE RODRIGUEZ S. 11/01/17 Glipizide* (Glipizide*) 5 Mg Tablet, 5 MG PO AC BREAKFAST DINNER, #60 TAB 4 Refills Prov:JESSE RODRIGUEZ S. 11/01/17 Clopidogrel Bisulfate (Clopidogrel) 75 Mg Tablet, 75 MG PO DAILY, #30 TAB 8 Refills Prov:JESSE RODRIGUEZ. 11/01/17 Carvedilol* (Carvedilol*) 6.25 Mg Tablet, 6.25 MG PO BID, #60 TAB 4 Refills Prov:JESSE RODRIGUEZ. 11/01/17 Atorvastatin* (Atorvastatin*) 80 Mg Tablet, 80 MG PO QHS, #30 TAB 4 Refills Prov:JESSE RODRIGUEZ. 11/01/17 Aspirin* (Aspirin* EC) 81 Mg Tablet.dr, 81 MG PO DAILY, #30 TAB 4 Refills Prov:JESSE RODRIGUEZ. 11/01/17 Reported Medications Hydrocodone/Acetaminophen ([place] 5-325 Tablet) 1 Each Tablet, 1 EACH PO Q4, TAB 10/30/17 Follow-up Plan Please take your medications as prescribed. Please follow-up with your boiler or engine operator and regular doctor in the clinic in the next few days. Primary Care Provider Care Physician No Primary Time spent on discharge: > 30 minutes Pending Labs Laboratory Tests Test 10/31/17 17:23 10/31/17 20:40 11/01/17 08:05 11/01/17 12:14 Bedside Glucose 190mg/dL (70-220) 193mg/dL (70-220) 149mg/dL (70-220) 213mg/dL (70-220) JESSE RODRIGUEZ Nov 01, 2017 14:44
--- NOTE | 2017-11-01 18:51 | CONS ---
DATE OF ADMISSION: 10/29/2017 DATE OF CONSULTATION: REASON FOR CONSULTATION: Pericardial effusion. HISTORY OF PRESENT ILLNESS: This is a 57-year-old male who underwent coronary artery bypass graftin g about 2 weeks ago. The patient subsequently was found to have shortness of breath, admitted. Par t of his workup has included a CT angiogram of the chest which has showed no evidence of any pulmona ry embolism or dissection, but the patient does have a moderate amount of large retrosternal fluid c ollection. Echocardiogram was done which showed small to moderate pericardial effusion mostly aroun d the LV, bilateral pleural effusions, no signs of tamponade. PAST MEDICAL HISTORY: Hypertension, hyperlipidemia, diabetes, coronary artery disease. PAST SURGICAL HISTORY: Coronary artery bypass grafting. MEDICATIONS: List reviewed. PHYSICAL EXAMINATION: VITAL SIGNS: Blood pressure is 107/72, pulse is 88, respirations 18. CARDIOVASCULAR: Normal S1, S2. LUNGS: Clear. ABDOMEN: Soft. EXTREMITIES: Warm. IMPRESSION: Status post coronary artery bypass grafting with small to moderate amount of pericardia l effusion. No signs of tamponade. No plan for surgery at this time. Would monitor. The patient may be discharged home. Follow up with original surgeon. Discussed with the patient. Dictated By: MARVIN MARROQUIN MD FM/NTS Conf#: [id number] DID#: [id number] CC: MOOK LANDRY MD;*EndCC*
== END 2017-11-01 18:02 | disposition home or self-care (01) | DRG 314 ==
LOC: E/R 21:59 → MS4 23:56
PROVIDERS: ADMIT Family Medicine; ATTEND Family Medicine
DX: I31.3 Pericardial effusion (noninflammatory) (principal); I50.33 Acute on chronic diastolic (congestive) heart failure; J90 Pleural effusion, not elsewhere classified; I97.641 Postprocedural seroma of a circulatory system organ or structure following cardiac bypass; I25.810 Atherosclerosis of coronary artery bypass graft(s) without angina pectoris; I11.0 Hypertensive heart disease with heart failure; E78.5 Hyperlipidemia, unspecified; E11.9 Type 2 diabetes mellitus without complications; Y83.8 Other surgical procedures as the cause of abnormal reaction of the patient, or of later complication, without mention of misadventure at the time of the procedure; Y71.8 Miscellaneous cardiovascular devices associated with adverse incidents, not elsewhere classified; Y92.019 Unspecified place in single-family (private) house as the place of occurrence of the external cause; Z95.1 Presence of aortocoronary bypass graft; Z79.4 Long term (current) use of insulin; Z79.82 Long term (current) use of aspirin
CPT/HCPCS: 36415; 36600; 71010; 71275; 80053; 80061; 82550; 82553; 82803; 82962; 83036; 83690; 83735; 83880; 84443; 84484; 85025; 85610; 87275; 87276; 87279; 87280; 87400; 93306; 94640; 94664; 96374; J1815; J1940; J2270; Q9967

== ENCOUNTER 2019-08-12 15:58 | Emergency (ER) | payer MEDICAID, OTHER ==
[~2019-08-12] VITALS: Wt 88.7 kg
[~2019-08-12 15:58] MED LIST: ASPI-817 PO; ATOR-2 PO; BENZ1LOZ4 MT; CARV6.2579 PO; CEPH-443 PO; CLOP75TA27 PO; GLIP5TAB13 PO; HYDR-4011 PO; LISI2.5T59 PO; TRIA15CR55 TOP
[2019-08-12] MEDS ORDERED: SOD CHLORIDE 0.9% IV ONE ×2 (17:30→19:00)
[2019-08-12] MEDS ORDERED: MAGNESIUM OXIDE 400 MG TAB PO ONE (19:00)
[2019-08-12] MEDS ORDERED: ACCU-CHEK XX ONE (19:00)
[2019-08-12] MEDS ORDERED: INSULIN LISPRO 100 UNIT/ML VIAL SC ONE (19:00)
[2019-08-12 20:15] VITALS: BP 141/81; PULSE 99; RESP 17
== END 2019-08-12 20:27 | disposition home or self-care (01) ==
LOC: E/R 15:58
DX: E11.65 Type 2 diabetes mellitus with hyperglycemia (principal); L03.115 Cellulitis of right lower limb; I10 Essential (primary) hypertension; I25.10 Atherosclerotic heart disease of native coronary artery without angina pectoris; I25.2 Old myocardial infarction; Z79.82 Long term (current) use of aspirin; Z79.84 Long term (current) use of oral hypoglycemic drugs; Z95.1 Presence of aortocoronary bypass graft
CPT/HCPCS: 36415; 80048; 81001; 82803; 82962; 83735; 84100; 85025; 96372; J1815; J7030; Z7502; Z7610